=== PATIENT | male | born 1980 | race Caucasian/White ===

== ENCOUNTER 2024-06-11 09:41 | Observation (INO) | payer OTHER ==
[2024-06-11] MEDS ORDERED: ONDANSETRON 4 MG/2 ML VIAL ONE (10:22)
[2024-06-11 10:27] LABS: Absolute Basophils 0.1 K/uL (0-0.5); Absolute Eosinophils 0.1 K/uL (0-0.5); Absolute Lymphocytes (CBC) 1.7 K/uL (0.7-4.9); Absolute Monocytes 0.7 K/uL (0.1-1.3); Absolute Neutrophil 3.2 K/uL (1.8-8.0); Basophils % 1.1 % (0-1.3); Eosinophils % 2.4 % (0-4.4); Hematocrit 43.2 % (39.6-49.0); Hemoglobin 14.7 g/dL (13.6-17.9); Lymphocytes % 29.2 % (15.3-44.8); MCH 31.8 pg (27.0-35.0); MCHC 34.1 g/dL (32.0-36.0); MCV 93.4 fL (80-100); MPV 7.9 fL (7.6-11.3); Monocytes % 12.1 % (3.3-12.3); Neutrophils % 55.2 % (41.7-73.7); Platelets 230 thou/uL (152-406); RBC Red Blood Cell Count 4.63 M/uL (4.33-5.43); Red Cell Distribution Width 13.3 % (12.1-15.2)
[2024-06-11 10:30] LABS: Protime INR 0.98
[2024-06-11] MEDS ORDERED: NITROGLYCERIN 0.4 MG/TAB SL ONE (10:32)
--- NOTE | 2024-06-11 10:36 | RAD REPORT ---
EXAMINATION: ONE VIEW CHEST XR CLINICAL INDICATION: DYSPNEA TECHNIQUE: Frontal chest projection is submitted. Examination is limited by patient positioning and t echnique. COMPARISON: No prior exam. FINDINGS: The lungs are well inflated and clear. The heart is moderately enlarged with multilead pacer/fibrilla tor device. No displaced fractures identified.
[2024-06-11 10:54] LABS: SARS-CoV-2 Antigen CONTROL BLUE LINE VIS/BG OK; SARS-CoV-2 Antigen Rapid Res Negative (Negative)
[2024-06-11 10:55] LABS: ALT/SGPT 77 U/L (16-61); AST/SGOT 55 U/L (15-37); Albumin 3.4 g/dL (3.4-5.0); Albumin/Globulin Ratio 0.8 (1.1-1.8); Alkaline Phosphatase 59 U/L (45-117); BUN Blood Urea Nitrogen 18 mg/dL (7-18); Bicarbonate 22 mEq/L (21-32); Bilirubin Total 0.5 mg/dL (0.2-1.0); Globulin 4.3 g/dL (2.3-3.5); Glomerular Filtration Rate 83 ml/min (=/>90); Glucose Level 126 mg/dL (74-106); Magnesium 2.1 mg/dL (1.6-2.4); NT PRO-BNP 1170 pg/mL (<125); Protein, Total 7.7 g/dL (6.4-8.2); Sodium Level 137 mEq/L (136-145)
[2024-06-11 10:56] LABS: Bilirubin Direct < 0.2 mg/dL (0-0.2); Bilirubin Indirect, Calculated 0.3 mg/dL (0.2-0.8)
[2024-06-11 10:59] LABS: Troponin High Sensitivity 123.7 pg/mL (<58.9)
[2024-06-11] MEDS ORDERED: ASPIRIN EC 325 MG TABLET PO ONE (11:04)
--- NOTE | 2024-06-11 11:16 | ER ---
Nurse's Notes [facility] Name: Delbert Andrade Age: 43 yrs Sex: Male : 1980 Arrival Date: 06/11/2024 Time: 09:41 Bed 13 Private MD: Diagnosis: NSTEMI, CHF exacerbation, chest pain Presentation: 06/11 09:57 Chief complaint: SOB and cough x 6 days, N/V/D x 2-3 days. Coronavirus screen: Client hb presents with at least one sign or symptom that may indicate coronavirus-19. Provider contacted for isolation considerations. Ebola Screen: No symptoms or risks identified at this time. Initial Sepsis Screen: Does the patient meet any 2 criteria? No. Patient's initial sepsis screen is negative. Does the patient have a suspected source of infection? No. Patient's initial sepsis screen is negative. Risk Assessment: Do you want to hurt yourself or someone else? Patient reports no desire to harm self or others. Onset of symptoms was June 05, 2024. 09:57 Method Of Arrival: Ambulatory 09:57 Acuity: JANY 2 hb Triage Assessment: 12:39 General: Appears uncomfortable, Behavior is anxious. Respiratory: Onset: The ko1 symptoms/episode began/occurred at an unknown time. the patient has moderate shortness of breath. Respiratory: Reports shortness of breath at rest on exertion cough that is non-productive. Historical: - Allergies: 09:59 No Known Allergies; hb - Home Meds: 09:59 Digoxin Oral [Active]; Entresto oral [Active]; gabapentin oral [Active]; Magnesium hb Oxide Oral [Active]; unknown HTN med [Active]; - PMHx: 09:59 CHF; Atrial fibrillation; WI; HTN; hb - PSHx: 09:59 Pelvis; pacemaker/defib; Colostomy; Colostomy Reversal; hb - Immunization history:: Adult Immunizations up to date. - Infectious Disease History:: Denies. - Social history:: Smoking status: Patient reports the use of cigarette tobacco products, smokes one-half pack cigarettes per day. Screenin:31 [facility] ED Fall Risk Assessment (Adult) History of falling in the last 3 months, ko1 including since admission No falls in past 3 months (0 pts) Confusion or Disorientation No (0 pts) Intoxicated or Sedated No (0 pts) Impaired Gait No (0 pts) Mobility Assist Device Used No (0 pt) Altered Elimination No (0 pt) Score/Fall Risk Level 0 - 2 = Low Risk Oriented to surroundings, Maintained a safe environment, Educated pt \T\ family on fall prevention, incl call for assistance when getting out of bed, Assessed \T\ reinforced patient's understanding of fall precautions, Hourly rounding (assess needs \T\ fall precautionary measures) done. Abuse screen: Denies threats or abuse. Denies injuries from another. Nutritional screening: No deficits noted. Tuberculosis screening: No symptoms or risk factors identified. Assessment: 10:34 General: Appears uncomfortable, Behavior is cooperative, appropriate for age, anxious. ko1 Pain: Denies pain. Neuro: No deficits noted. Cardiovascular: Rhythm is Respiratory: Airway is patent Respiratory effort is even, unlabored, Breath sounds are diminished bilaterally. Respiratory: Reports shortness of breath at rest on exertion cough that is non-productive. GI: No deficits noted. : No deficits noted. EENT: No deficits noted. Derm: No deficits noted. Musculoskeletal: No deficits noted. Vital Signs: 09:57 BP 174 / 126; Pulse 51; Resp 24; Temp 98.3(O); Pulse Ox 98% on R/A; Weight 113.4 kg; hb Height 6 ft. 0 in. ; Pain 5/10; 10:31 BP 164 / 118; Pulse 54; Resp 24; Pulse Ox 97% on R/A; ko1 10:46 BP 155 / 109; Pulse 56; Resp 15; Pulse Ox 99% ; ko1 10:55 BP 151 / 103; Pulse 52; Resp 15; Pulse Ox 97% on R/A; ko1 11:11 BP 130 / 96; Pulse 50; Resp 17; Pulse Ox 95% on R/A; ko1 12:27 BP 154 / 108; Pulse 93; Resp 16; Pulse Ox 95% on R/A; ko1 09:57 Body Mass Index 33.91 (113.40 kg, 182.88 cm) hb 09:57 Pain Scale: Adult hb ED Course: 09:44 Patient arrived in ED. ra3 09:45 Reynold Krishnamurthy MD is Attending Physician. sp3 09:52 Lalitha Landry RN is Primary Nurse. ko1 09:59 Triage completed. hb 10:02 Arm band placed on. hb 10:20 Basic Metabolic Panel Sent. ko1 10:20 CBC with Diff Sent. ko1 10:20 LFT's Sent. ko1 10:20 Magnesium Sent. ko1 10:20 NT PRO-BNP Sent. ko1 10:20 PT-INR Sent. ko1 10:20 Troponin HS Sent. ko1 10:21 Digoxin Sent. ko1 10:30 Flu Sent. ko1 10:30 SARS RAPID Sent. ko1 10:31 XRAY Chest (1 view) In Process Unspecified. EDMS 10:31 Patient has correct armband on for positive identification. Bed in low position. Call ko1 light in reach. Side rails up X 1. Provided Education on: labs, meds. Client placed on continuous cardiac and pulse oximetry monitoring. NIBP monitoring applied. residential care facility manager on. Door closed. Noise minimized. Lights dimmed. Pillow given. 10:31 Initial lab(s) drawn, by me, sent to lab. EKG done, by ED staff, reviewed by Reynold Krishnamurthy MD COVID swab sent to lab. Flu and/or RSV swab sent to lab. Inserted saline lock: 20 gauge in right antecubital area, using aseptic technique. Blood collected. Flushed with 10 mL NS. 11:32 Be Catherine MD is Hospitalizing Provider. sp3 12:37 No provider procedures requiring assistance completed. Patient admitted, IV remains in ko1 place. Administered Medications: 10:31 Drug: Ondansetron IVP 4 mg IVP once; over 2 minutes Route: IVP; Site: right antecubital;ko1 10:46 Follow up: Response: No adverse reaction ko1 10:38 Drug: Nitroglycerin Sublingual 0.4 mg Sublingual once; every five minute if needed x3 ko1 Route: Sublingual; 10:45 Drug: Nitroglycerin Sublingual 0.4 mg Sublingual once; every five minute if needed x3 ko1 Route: Sublingual; 10:55 Drug: Nitroglycerin Sublingual 0.4 mg Sublingual once; every five minute if needed x3 ko1 Route: Sublingual; 10:59 Follow up: Response: No adverse reaction ko1 11:07 Drug: Aspirin PO 325 mg PO once Route: PO; ko1 11:58 Follow up: Response: No adverse reaction ko1 Medication: 10:31 VIS not applicable for this client. ko1 Outcome: 11:16 ER care complete, transfer ordered by . sp3 11:32 Decision to Hospitalize by Provider. sp3 12:37 Condition: stable ko1 12:37 Instructed on the need for admit, 12:40 Admitted to ER Hold. Please see [facility] for further documentation. ko1 14:40 Admitted to Tele accompanied by tech, via wheelchair, with chart, ko1 14:53 Patient left the ED. ko1 Signatures: Dispatcher [employer] EDMS Radha Tomas, RN RN Reynold Krishnamurthy MD MD sp3 Lalitha Landry RN RN ko1 Monique Varela ra3 Corrections: (The following items were deleted from the chart) 12:28 12:27 BP 156 / 121; Pulse 93bpm; Resp 16bpm; Pulse Ox 95% RA; ko1 ko1
--- NOTE | 2024-06-11 11:16 | EDPHYS ---
Physician Documentation [facility] Name: Delbert Andrade Age: 43 yrs Sex: Male : 1980 Arrival Date: 06/11/2024 Time: 09:41 Bed 13 Private MD: ED Physician Reynold Krishnamurthy HPI: 06/11 10:21 This 43 yrs old Male presents to ER via Ambulatory with complaints of Breathing sp3 Difficulty - x4days. 10:21 43-year-old male with a history of CHF, biventricular heart failure, hypertension, sp3 prior OH, prior CVA, previously on heart transplant list, currently on digoxin now presents to the ED with chief complaint shortness of breath and chest pain. Symptoms began on for the last 2 to 3 days and he feels like he has volume overload. He has been taking his medications without change. His PCP and cardiology care team is within the [facility] system with his PCP in [place]. He denies fever, known sick contacts, abdominal pain, back pain, syncope, near syncope, rash, bleeding, or any other signs or symptoms on ROS at this time.. Historical: - Allergies: 09:59 No Known Allergies; hb - Home Meds: 09:59 Digoxin Oral [Active]; Entresto oral [Active]; gabapentin oral [Active]; Magnesium hb Oxide Oral [Active]; unknown HTN med [Active]; - PMHx: 09:59 CHF; Atrial fibrillation; [place]; HTN; hb - PSHx: 09:59 Pelvis; pacemaker/defib; Colostomy; Colostomy Reversal; hb - Immunization history:: Adult Immunizations up to date. - Infectious Disease History:: Denies. - Social history:: Smoking status: Patient reports the use of cigarette tobacco products, smokes one-half pack cigarettes per day. ROS: 10:22 Constitutional: Negative for fever, chills, and weight loss, Eyes: Negative for injury, sp3 pain, redness, and discharge, ENT: Negative for injury, pain, and discharge, Neck: Negative for injury, pain, and swelling, Abdomen/GI: Negative for abdominal pain, nausea, vomiting, diarrhea, and constipation, Back: Negative for injury and pain, MS/Extremity: Negative for injury and deformity, Skin: Negative for injury, rash, and discoloration, Neuro: Negative for headache, weakness, numbness, tingling, and seizure, Psych: Negative for depression, anxiety, suicide ideation, homicidal ideation, and hallucinations, Allergy/Immunology: Negative for hives, rash, and allergies, Endocrine: Negative for neck swelling, polydipsia, polyuria, polyphagia, and marked weight changes, Hematologic/Lymphatic: Negative for swollen nodes, abnormal bleeding, and unusual bruising, 10:22 All other systems are negative, Exam: 10:22 Constitutional: This is a well developed, well nourished patient who is awake, alert, sp3 and in no acute distress. Head/Face: Normocephalic, atraumatic. Eyes: Pupils equal round and reactive to light, extra-ocular motions intact. Lids and lashes normal. Conjunctiva and sclera are non-icteric and not injected. Cornea within normal limits. Periorbital areas with no swelling, redness, or edema. Neck: Trachea midline, no thyromegaly or masses palpated, and no cervical lymphadenopathy. Supple, full range of motion without nuchal rigidity, or vertebral point tenderness. No Meningismus. Chest/axilla: Normal chest wall appearance and motion. Nontender with no deformity. No lesions are appreciated. Cardiovascular: Regular rate and rhythm with a normal S1 and S2. No gallops, murmurs, or rubs. Normal PMI, no JVD. No pulse deficits. Abdomen/GI: Soft, non-tender, with normal bowel sounds. No distension or tympany. No guarding or rebound. No evidence of tenderness throughout. Back: No spinal tenderness. No costovertebral tenderness. Full range of motion. Skin: Warm, dry with normal turgor. Normal color with no rashes, no lesions, and no evidence of cellulitis. MS/ Extremity: Pulses equal, no cyanosis. Neurovascular intact. Full, normal range of motion. Neuro: Awake and alert, GCS 15, oriented to person, place, time, and situation. Cranial nerves II-XII grossly intact. Motor strength 5/5 in all extremities. Sensory grossly intact. Cerebellar exam normal. Normal gait. Psych: Awake, alert, with orientation to person, place and time. Behavior, mood, and affect are within normal limits. 10:22 Respiratory: Tachypneic with mild Rales noted bilaterally. Blood pressure 174/126., 10:27 ECG was reviewed by the Attending Physician. EKG demonstrates atrial paced rhythm at 98 sp3 bpm with adequate ventricular capture Vital Signs: 09:57 BP 174 / 126; Pulse 51; Resp 24; Temp 98.3(O); Pulse Ox 98% on R/A; Weight 113.4 kg; hb Height 6 ft. 0 in. ; Pain 5/10; 10:31 BP 164 / 118; Pulse 54; Resp 24; Pulse Ox 97% on R/A; ko1 10:46 BP 155 / 109; Pulse 56; Resp 15; Pulse Ox 99% ; ko1 10:55 BP 151 / 103; Pulse 52; Resp 15; Pulse Ox 97% on R/A; ko1 11:11 BP 130 / 96; Pulse 50; Resp 17; Pulse Ox 95% on R/A; ko1 12:27 BP 154 / 108; Pulse 93; Resp 16; Pulse Ox 95% on R/A; ko1 09:57 Body Mass Index 33.91 (113.40 kg, 182.88 cm) hb 09:57 Pain Scale: Adult hb MDM: 09:45 Medical Screening Exam initiated sp3 10:23 Data reviewed: vital signs, nurses notes, lab test result(s), EKG, radiologic studies. sp3 ED course: 43-year-old male with shortness of breath and chest pain. Differential diagnosis includes CHF exacerbation, OH, acute coronary syndrome, musculoskeletal pain, GI pathology, among others. I am not highly suspicious of sepsis or shock. Workup will include EKG, chest x-ray, labs, digoxin level, viral swabs, among others. Disposition probable admission and diagnosis of probable volume overload/CHF exacerbation. Will start with nitroglycerin sublingual and await labs with subsequent Lasix as needed.. 11:13 ED course: Given patient's complex cardiac history including transplant list status and sp3 biventricular failure, patient will need cardio ICU and will be transferred to [facility]. Diagnosis of NSTEMI and CHF have been made.. 11:29 ED course: [facility] at capacity therefore we will keep patient here. I have spoken to our 3 cardiology team who will see him.. 06/11 09:45 Order name: Basic Metabolic Panel; Complete Time: 11:03 sp3 06/11 09:45 Order name: CBC with Diff; Complete Time: 10:52 sp3 06/11 09:45 Order name: LFT's; Complete Time: 11:03 sp3 06/11 09:45 Order name: Magnesium; Complete Time: 11:03 sp3 06/11 09:45 Order name: NT PRO-BNP; Complete Time: 11:03 sp3 06/11 09:45 Order name: PT-INR; Complete Time: 10:52 sp3 06/11 09:45 Order name: Troponin HS; Complete Time: 11:03 sp3 06/11 10:01 Order name: SARS RAPID; Complete Time: 10:58 sp3 06/11 10:01 Order name: Flu; Complete Time: 10:58 sp3 06/11 10:19 Order name: Digoxin; Complete Time: 11:13 sp3 06/11 12:27 Order name: Urinalysis w/ reflexes EDMS 06/11 12:27 Order name: Basic Metabolic Panel EDMS 06/11 12:27 Order name: Basic Metabolic Panel EDMS 06/11 12:27 Order name: CBC with Automated Diff EDMS 06/11 12:27 Order name: CBC with Automated Diff EDMS 06/11 12:27 Order name: Magnesium EDMS 06/11 12:27 Order name: Magnesium EDMS 06/11 12:27 Order name: Phosphorus EDMS 06/11 12:27 Order name: Phosphorus EDMS 06/11 12:27 Order name: Troponin High Sensitivity EDMS 06/11 12:27 Order name: Troponin High Sensitivity EDMS 06/11 12:27 Order name: Troponin High Sensitivity EDMS 06/11 09:45 Order name: XRAY Chest (1 view); Complete Time: 10:52 sp3 06/11 12:27 Order name: Echo with Doppler EDMS 06/11 09:45 Order name: Cardiac monitoring; Complete Time: 09:56 sp3 06/11 09:45 Order name: EKG - Nurse/Tech; Complete Time: 10:20 sp3 06/11 09:45 Order name: IV Saline Lock; Complete Time: 10:20 sp3 06/11 09:45 Order name: Labs collected and sent; Complete Time: 10:20 sp3 06/11 09:45 Order name: O2 Per Protocol; Complete Time: 09:56 sp3 06/11 09:45 Order name: O2 Sat Monitoring; Complete Time: 09:55 sp3 Administered Medications: 10:31 Drug: Ondansetron IVP 4 mg IVP once; over 2 minutes Route: IVP; Site: right antecubital;ko1 10:46 Follow up: Response: No adverse reaction ko1 10:38 Drug: Nitroglycerin Sublingual 0.4 mg Sublingual once; every five minute if needed x3 ko1 Route: Sublingual; 10:45 Drug: Nitroglycerin Sublingual 0.4 mg Sublingual once; every five minute if needed x3 ko1 Route: Sublingual; 10:55 Drug: Nitroglycerin Sublingual 0.4 mg Sublingual once; every five minute if needed x3 ko1 Route: Sublingual; 10:59 Follow up: Response: No adverse reaction ko1 11:07 Drug: Aspirin PO 325 mg PO once Route: PO; ko1 11:58 Follow up: Response: No adverse reaction ko1 Disposition: 11:30 Critical Care:. sp3 Disposition Summary: 06/11/24 11:32 Hospitalization Ordered Notes: Hospitalization Status: Inpatient Admission sp3 Provider: Be Catherine sp3 Condition: Stable(06/11/24 11:32) sp3 Problem: an acute exacerbation(06/11/24 11:32) sp3 Symptoms: have worsened(06/11/24 11:32) sp3 Bed/Room Type: Standard sp3 Location: Telemetry/MedSurg (Inpatient)(06/11/24 13:50) Room Assignment: 219(06/11/24 13:50) Diagnosis - NSTEMI, CHF exacerbation, chest pain sp3 Forms: - Medication Reconciliation Form sp3 - SBAR form sp3 - Leadership Thank You Letter sp3 Critical care time excluding procedures: 11:30 Critical care time: Bedside Care: 20 minutes, Consultation: 10 minutes. Total time: 30 sp3 minutes Signatures: Dispatcher [employer] EDMS Radha Tomas RN RN Reynold Krishnamurthy MD MD sp3 Lalitha Landry RN RN ko1 Corrections: (The following items were deleted from the chart) 09:46 09:46 BASIC METABOLIC PANEL+C.LAB.BRZ ordered. EDMS EDMS 09:46 09:46 CBC+H.LAB.BRZ ordered. EDMS EDMS 09:46 09:46 HEPATIC FUNCTION+C.LAB.BRZ ordered. EDMS EDMS 09:46 09:46 MAGNESIUM+C.LAB.BRZ ordered. EDMS EDMS 09:46 09:46 PROBNP+C.LAB.BRZ ordered. EDMS EDMS 09:46 09:46 PROTIME (+INR)+COAG.LAB.BRZ ordered. EDMS EDMS 09:46 09:46 Troponin High Sensitivity+C.LAB.BRZ ordered. EDMS EDMS 09:46 09:46 Chest Single View+RAD.RAD.BRZ ordered. EDMS EDMS 11: 11:16 [facility] sp3 sp3 11: 11:16 [facility] sp3 sp3 11: 11:16 Higher level of care sp3 sp3 11: 11:16 Stable sp3 sp3 11:31 11:16 an acute exacerbation sp3 sp3 11: 11:16 have worsened sp3 sp3 11:31 11:16 CHF exacerbation, NSTEMI, chest pain, dyspnea sp3 sp3 13:50 11:32 Intensive Care Unit sp3 hb 13:50 11:32 sp3 hb
[2024-06-11] MEDS ORDERED: ACETAMINOPHEN 325 MG TABLET PO PRN (12:19)
--- NOTE | 2024-06-11 12:33 | P.HP ---
Certification for Inpatient Patient admitted to: Observation With expected LOS: <2 Midnights Patient will require the following post-hospital care: None Practitioner: I am a practitioner with admitting privileges, knowledge of patient current condition, hospital course, and medical plan of care. Services: Services provided to patient in accordance with Admission requirements found in Title 42 Section 412.3 of the Code of Federal Regulations Patient History Date of Service: 06/11/24 Reason for admission: CHF exacerbation, NSTEMI, chest pain History of Present Illness: Delbert Andrade is a 43 year old male with PMHX CHF, Afib, HTN, [place], and CVA who presented with chest pain, SOB, nausea, vomitting, fatique, and diarrhea for 4 days. He reports not being able to sleep for 4 days with his coughing. Flu/COVID negative. On evaluation, lung sounds are clear with dry cough, in no acute distress. Laboratory evaluation significant for Trop 123, BNP 1170. Chest xray reports "The lungs are well inflated and clear. The heart is moderately enlarged with multilead pacer/fibrillator device. No displaced fractures identified." He reports being on the heart transplant list but has since been taken off and was feeling better. He stated he has been compliant with medications and Doctor follow ups for 5-6 years. Delbert will be admitted to hopitalist service for further evaluation and treatment for NSTEMI, CHF exacerbation, Dr. Campos consulted. Allergies No Known Allergies Allergy (Unverified 06/11/24 12:37) Home Medications: Atorvastatin Calcium 40 mg PO BEDTIME 06/11/24 Digoxin [Lanoxin*] 1 tab PO DAILY 06/11/24 Empagliflozin [Jardiance] 10 mg PO DAILY 06/11/24 Escitalopram Oxalate [Lexapro] 10 mg PO DAILY 06/11/24 Furosemide [Lasix*] 40 mg PO BID 06/11/24 Gabapentin [Neurontin*] 100 mg PO TID 06/11/24 Magnesium Oxide [Mag 0X*] 400 mg PO DAILY 06/11/24 Sacubitril/Valsartan [Entresto 49 mg-51 mg Tablet] 1 tab PO BID 06/11/24 Trazodone [Desyrel*] 200 mg PO BEDTIME 06/11/24 Vortioxetine Hydrobromide [Trintellix] 1 tab PO DAILY 06/11/24 buPROPion HCL [Wellbutrin*] 300 mg PO DAILY 06/11/24 - Past Medical/Surgical History -: CHF -: PNA -: HTN -: Afib -: CVA -: [place] -: pacer maker/defibrillator -: skin grafts -: abdominal procedure - Social History Smoking Status: Current every day smoker (one pack per week) Alcohol use: Yes CD- Drugs: No Review of Systems Respiratory: Cough, Shortness of Breath Cardiovascular: Chest Pain Gastrointestinal: Nausea, Vomiting, Diarrhea Physical Examination - Physical Exam General: Alert, In no apparent distress, Oriented x3 HEENT: Atraumatic, Normocephalic, PERRLA Neck: Supple, 2+ carotid pulse no bruit, JVD not distended Respiratory: Clear to auscultation bilaterally, Normal air movement Cardiovascular: No edema, Normal pulses, Regular rate/rhythm Capillary refill: <2 Seconds Gastrointestinal: Normal bowel sounds, Soft and benign, No tenderness Musculoskeletal: No clubbing Integumentary: No rashes Neurological: Normal speech, Normal tone - Studies Laboratory Data (last 24 hrs) 06/11/24 06/11/24 06/11/24 10:10 10:10 10:10 WBC 5.90 Hgb 14.7 Hct 43.2 Plt Count 230 PT 11.0 INR 0.98 Sodium 137 Potassium 4.0 BUN 18 Creatinine 1.12 Glucose 126 H Magnesium 2.1 Total Bilirubin 0.5 AST 55 H ALT 77 H Alkaline Phosphatase 59 Microbiology Data (last 24 hrs): 06/11/24 10:25 Nasopharnyx Influenza Type A Antigen Screen - Final 06/11/24 10:25 Nasopharnyx Influenza Type B Antigen Screen - Final Assessment and Plan - Plan Assessment and Plan Chest pain r/o NSTEMI congestive heart failure with exacerbation History of Atrial fibrillation - Consult Cardiology - recommendations appreciated - Ordered transthoracic echocardiogram - Troponin 123, serial pending -COVID and FLu negative -Chest xray reports "The lungs are well inflated and clear. The heart is moderately enlarged with multilead pacer/fibrillator device. No displaced fractures identified." - Diuresis with lasix BID - Hold home Furosemide/Torsemide/Bumetanide - Continue home heart failure medications - Daily weights - Strict I/O - Cardiac diet, 2 L fluid restriction, 2 g Na restriction Transaminitis -AST/ALT 55/77 -will monitor in AM labs HTN IN CVA -continue home medications when appropriate -Supportive care DVT ppx heparin Full code LOS 24 hour OBS Discharge Plan: Home Plan to discharge in: 24 Hours - Advance Directives Does patient have a Living Will: No Does patient have a Durable POA for Healthcare: No
[2024-06-11 15:05] VITALS: O2SAT 95
[2024-06-11 15:36] VITALS: BMI 34.9
[2024-06-11 16:35] LABS: Specific Gravity 1.023 (1.005-1.030); Sqamous Epithelial <5 /HPF (None Seen); Urine Bacteria <20 /HPF (<20); Urine Bilirubin NEGATIVE (Negative); Urine Blood Negative (Negative); Urine Clarity Clear (Clear); Urine Color Light-Yellow (Yellow); Urine Culture Reflex Order NOT NEEDED; Urine Glucose NEGATIVE (Negative); Urine Ketones NEGATIVE (Negative); Urine Microscopic Reflex YN ORDER UMIC; Urine Nitrite NEGATIVE (Negative); Urine Protein 1+ (Negative); Urine RBC <5 /HPF (None Seen); Urine Urobilinogen Normal (Normal); Urine WBC <5 /HPF (<5)
[2024-06-11] MEDS: HEPARIN 5000 UNIT/ML 1 ML VIAL SQ SCH (16:47)
[2024-06-11] MEDS ORDERED: BENZONATATE 100 MG CAP PO PRN (20:06)
[2024-06-11] MEDS: SACUBITRIL/VALSARTAN 49/51 MG TAB PO SCH (21:07)
[2024-06-11] MEDS: FUROSEMIDE 40 MG/4 ML VIAL IV SCH (21:07)
[2024-06-11] MEDS: METOPROLOL TAR 25 MG TAB PO SCH (21:08)
[2024-06-11] MEDS: ATORVASTATIN 40 MG TAB PO SCH (21:08)
[2024-06-11] MEDS: GABAPENTIN 100 MG CAP PO SCH (21:08)
[2024-06-11] MEDS: TRAZODONE 50 MG TABLET PO SCH (21:09)
[2024-06-11] MEDS: HYDRALAZINE HCL 20 MG/ML VIAL IV PRN (21:36)
[2024-06-12 04:47] LABS: Absolute Basophils 0.1 K/uL (0-0.5); Absolute Eosinophils 0.2 K/uL (0-0.5); Absolute Lymphocytes (CBC) 2.4 K/uL (0.7-4.9); Absolute Neutrophil 4.6 K/uL (1.8-8.0); Basophils % 0.8 % (0-1.3); Eosinophils % 2.8 % (0-4.4); Hematocrit 44.1 % (39.6-49.0); Hemoglobin 15.1 g/dL (13.6-17.9); MCHC 34.2 g/dL (32.0-36.0); MCV 93.4 fL (80-100); MPV 8.2 fL (7.6-11.3); Monocytes % 12.5 % (3.3-12.3); Neutrophils % 54.9 % (41.7-73.7); Nucleated Red Blood Cells % 0.2 % (0-0); Platelets 240 thou/uL (152-406); RBC Red Blood Cell Count 4.72 M/uL (4.33-5.43); Red Cell Distribution Width 13.4 % (12.1-15.2)
[2024-06-12 04:56] LABS: Anion Gap 10.1 mEq/L (5.0-15.0); Phosphorus 4.1 mg/dL (2.5-4.9); Potassium 4.1 mEq/L (3.5-5.1)
[2024-06-12] MEDS ORDERED: METOPROLOL TAR 25 MG TAB PO SCH (06:00)
[2024-06-12] MEDS: Jardiance 10 MG Tablet **OWN MED PO SCH (09:00)
[2024-06-12] MEDS: TRINTELLIX 10 MG PO SCH (09:00)
[2024-06-12] MEDS: MAGNESIUM OXIDE 400 MG TAB PO SCH (09:00)
[2024-06-12] MEDS: DIGOXIN 0.25 MG TABLET PO SCH (09:26)
[2024-06-12] MEDS: ASPIRIN EC 81 MG TAB PO SCH (09:27)
[2024-06-12] MEDS: ESCITALOPRAM 20 MG TAB PO SCH (09:27)
[2024-06-12] MEDS: GUAIFENESIN/CODEINE 5ML UCUP PO PRN (09:37)
[2024-06-12 12:20] VITALS: BP 132/74; TEMP 98.4
--- NOTE | 2024-06-12 13:35 | P.CNS ---
Date of Consult: 06/12/24 Chief Complaint: CHF exacerbation, NSTEMI, chest pain History of Present Illness: Patient with PMH of systolic heart failure secondary to substance abuse, presented with cough, worsening SOB and fatigue for last week, denies chest pain, no palpitations, no syncope. Allergies No Known Allergies Allergy (Unverified 06/11/24 12:37) Home medications list reviewed: Yes Home Medications: Atorvastatin Calcium 40 mg PO BEDTIME 06/11/24 Digoxin [Lanoxin*] 1 tab PO DAILY 06/11/24 Empagliflozin [Jardiance] 10 mg PO DAILY 06/11/24 Escitalopram Oxalate [Lexapro] 10 mg PO DAILY 06/11/24 Furosemide [Lasix*] 40 mg PO BID 06/11/24 Gabapentin [Neurontin*] 100 mg PO TID 06/11/24 Magnesium Oxide [Mag 0X*] 400 mg PO DAILY 06/11/24 Sacubitril/Valsartan [Entresto 49 mg-51 mg Tablet] 1 tab PO BID 06/11/24 Trazodone [Desyrel*] 200 mg PO BEDTIME 06/11/24 Vortioxetine Hydrobromide [Trintellix] 1 tab PO DAILY 06/11/24 Bupropion *Xl* [Wellbutrin XL] 300 mg PO DAILY 06/12/24 - Past Medical/Surgical History -: CHF -: PNA -: HTN -: Afib -: CVA -: [place] -: pacer maker/defibrillator -: skin grafts -: abdominal procedure - Social History Smoking Status: Current every day smoker Alcohol use: Yes CD- Drugs: No Caffeine use: Yes Place of Residence: Home Review of Systems 10-point ROS is otherwise unremarkable Physical Examination Temp Pulse Resp BP Pulse Ox 98.4 F 72 16 132/74 98 06/12/24 12:00 06/12/24 12:00 06/12/24 12:00 06/12/24 12:00 06/12/24 12:00 General: Alert, In no apparent distress HEENT: Atraumatic, PERRLA, Mucous membr. moist/pink, EOMI, Sclerae nonicteric Neck: Supple, 2+ carotid pulse no bruit, No LAD, Without JVD or thyroid abnormality Respiratory: Clear to auscultation bilaterally, Normal air movement Cardiovascular: Regular rate/rhythm, Normal S1 S2 Gastrointestinal: Normal bowel sounds, No tenderness Musculoskeletal: No tenderness Integumentary: No rashes Neurological: Normal gait, Normal speech, Normal tone, Normal affect Lymphatics: No axilla or inguinal lymphadenopathy - Problems (1) Chronic combined systolic and diastolic heart failure Current Visit: Yes Status: Acute Plan: Patient looks euvolemic on exam, patient used to follow up with [facility] Heart failure team and was at [facility] at one point so his HF is for sure non ischemic in nature, he has been complaint with medications. resume his home heart failure medications outpatient follow up with cardiology. (2) Elevated troponin Current Visit: Yes Status: Acute Plan: type 2 NC from atypical PNA, no need for further cardiac work up. outpatient follow up with cardiology.
[2024-06-12] MEDS: BUPROPION HCL XL 150 MG TAB PO SCH (14:04)
--- NOTE | 2024-06-12 14:50 | P.DS ---
Admission Date: 06/11/24 Discharge Date: 06/18/24 Disposition: ROUTINE DISCHARGE Discharge Condition: GOOD Reason for Admission: CHF exacerbation, NSTEMI, chest pain Brief History of Present Illness: Diagnosis Chest pain r/o NSTEMI Viral PNA congestive heart failure with exacerbation History of Atrial fibrillation Transaminitis HTN OR CVA HPI 06/11/24 Delbert Andrade is a 43 year old male with PMHX CHF, Afib, HTN, OR, and CVA who presented with chest pain, SOB, nausea, vomitting, fatique, and diarrhea for 4 days. He reports not being able to sleep for 4 days with his coughing. Flu/COVID negative. On evaluation, lung sounds are clear with dry cough, in no acute distress. Laboratory evaluation significant for Trop 123, BNP 1170. Chest xray reports "The lungs are well inflated and clear. The heart is moderately enlarged with multilead pacer/fibrillator device. No displaced fractures identified." He reports being on the heart transplant list but has since been taken off and was feeling better. He stated he has been compliant with medications and Doctor follow ups for 5-6 years. Delbert will be admitted to hopitalist service for further evaluation and treatment for NSTEMI, CHF exacerbation, Dr. Campos consulted. Hospital Course: Delbert presented to the ED with NSTEMI and CHF. Troponin trended down, Dr. Campos consulted recommending continuing heart failure medications and follow up outpatient. He tolerated lasix and reports feeling better in the AM. He remianed on RA and ambulated independently. On 06/12/24, Delbert was seen on morning rounds and deemed medically stable for discharge. Daivd was discharged with instructions to schedule follow-up appointments with Cardiology and PCP. Delbert was provided prescriptions for Robitussin, tessalon Perle, and aspirin. Physical Exam General: Alert and Oriented x3, NAD HEENT: Atraumatic, Normocephalic, PERRLA Neck: Supple, 2+ carotid pulse no bruit, JVD not distended Respiratory: Clear to auscultation bilaterally, Normal air movement, on RA Cardiovascular: No edema, Normal pulses, RRR, S1 S2 present Capillary refill: <2 Seconds Gastrointestinal: Normal bowel sounds, Soft and benign, No tenderness Musculoskeletal: No clubbing Integumentary: No rashes Neurological: Normal speech, Normal tone Vital Signs/Physical Exam: Temp Pulse Resp BP Pulse Ox 98.4 F 72 16 132/74 98 06/12/24 12:00 06/12/24 12:00 06/12/24 12:00 06/12/24 12:00 06/12/24 12:00 Laboratory Data at Discharge: WBC 8.30 thou/uL (4.3-10.9) 06/12/24 04:02 Hgb 15.1 g/dL (13.6-17.9) 06/12/24 04:02 Hct 44.1 % (39.6-49.0) 06/12/24 04:02 Plt Count 240 thou/uL (152-406) 06/12/24 04:02 PT 11.0 SECONDS (9.4-12.5) 06/11/24 10:10 INR 0.98 06/11/24 10:10 Sodium 136 mEq/L (136-145) 06/12/24 04:02 Potassium 4.1 mEq/L (3.5-5.1) 06/12/24 04:02 BUN 26 mg/dL (7-18) H 06/12/24 04:02 Creatinine 1.52 mg/dL (0.70-1.30) H 06/12/24 04:02 Glucose 115 mg/dL (74-106) H 06/12/24 04:02 Phosphorus 4.1 mg/dL (2.5-4.9) 06/12/24 04:02 Magnesium 2.0 mg/dL (1.6-2.4) 06/12/24 04:02 Total Bilirubin 0.5 mg/dL (0.2-1.0) 06/11/24 10:10 AST 55 U/L (15-37) H 06/11/24 10:10 ALT 77 U/L (16-61) H 06/11/24 10:10 Alkaline Phosphatase 59 U/L (45-117) 06/11/24 10:10 Home Medications: Atorvastatin Calcium 40 mg PO BEDTIME 06/11/24 Digoxin [Lanoxin*] 1 tab PO DAILY 06/11/24 Empagliflozin [Jardiance] 10 mg PO DAILY 06/11/24 Escitalopram Oxalate [Lexapro] 10 mg PO DAILY 06/11/24 Gabapentin [Neurontin*] 100 mg PO TID 06/11/24 Magnesium Oxide [Mag 0X*] 400 mg PO DAILY 06/11/24 Sacubitril/Valsartan [Entresto 49 mg-51 mg Tablet] 1 tab PO BID 06/11/24 Trazodone [Desyrel*] 200 mg PO BEDTIME 06/11/24 Vortioxetine Hydrobromide [Trintellix] 1 tab PO DAILY 06/11/24 Aspirin [Aspirin EC 81 MG] 81 mg PO 30 MIN BEFORE HS 30 Days #30 tab 06/12/24 Benzonatate [Tessalon Perle*] 100 mg PO Q6H PRN 5 Days #15 cap 06/12/24 Bupropion *Xl* [Wellbutrin XL*] 300 mg PO DAILY 06/12/24 Bupropion *Xl* [Wellbutrin XL*] 300 mg PO DAILY tab 06/12/24 Guaifen W/Codeine Syrup [ROBITUSSIN A-C Syrup*] 10 ml PO QID PRN 5 Days #200 ml 06/12/24 New Medications: Aspirin [Aspirin EC 81 MG] 81 mg PO 30 MIN BEFORE HS 30 Days #30 tab Guaifen W/Codeine Syrup [ROBITUSSIN A-C Syrup*] 10 ml PO QID PRN 5 Days #200 ml PRN Reason: COUGH - 2ND LINE Benzonatate [Tessalon Perle*] 100 mg PO Q6H PRN 5 Days #15 cap PRN Reason: COUGH - 1ST LINE Physician Discharge Instructions: 1. Please call and schedule a follow-up appointment with your PCP in 3-5 days - Please follow-up with your PCP for medication refills/adjustments -PCP may wish to start an antibiotic if symptoms worsen 2. Please call and schedule a follow-up appointment with cardiology in one week -Contnue all medications as prescribed 3. Continue heart healty diet 4. no activity restrictions 5. Return to the ED if symptoms worsen New medications Robitussin 10 ml four times daily as needed for cough Tessalon Perle 100 mg three times daily as need for cough Aspirin 81 mg daily Hold lasix until SaturdayJun 14, you were given a high dose of lasix and your kidney levels elevated some. Holding on the lasix for a day will allow that level to normalize. Diet: AHA Activity: Ad vicky Followup: Obi-Tyrese Walker MD [Primary Care Provider] -
--- NOTE | 2024-06-12 15:42 | EKG ---
Test Date: 2024-06-11 Test Time: 10:10:25 Identity Management Consultant: JUSTYN MEASUREMENT RESULTS: Intervals: Rate: 98 [place]: 142 QRSD: 136 QT: 436 QTc: 556 [place]: P: 47 NJ: 142 QRS: -44 T: 92 INTERPRETIVE STATEMENTS: Electronic ventricular pacemaker No previous ECG available for comparison Electronically Signed On 06-12-24 15:40:16 [employer] MANAGER by Francisco Campos
--- NOTE | 2024-06-15 08:36 | ECHO ---
HEIGHT: 6 ft 0 in WEIGHT: 257 lb 8 oz DATE OF STUDY: 06/12/[address]: Lin Foote NP 2-DIMENSIONAL: YES M.MODE: YES DOPPLER: YES COLOR FLOW: YES TDS: NO PORTABLE: YES DEFINITY: NO BUBBLE STUDY: NO DIAGNOSIS: HEART FAILURE, NSTEMI CARDIAC HISTORY: CATHERIZATION: NO SURGERY: NO PROSTHETIC VALVE: NO PACEMAKER: YES MEASUREMENTS (cm) DIASTOLIC (NORMALS) SYSTOLIC (NORMALS) IVSd 1.2 (0.6-1.2) LA Diam (1.9-4.0) LVEF 30-35% LVIDd 5.5 (3.5-5.7) LVIDs 4.7 (2.0-3.5) %FS 16% LVPWd 1.3 (0.6-1.2) Ao Diam 2.4 (2.0-3.7) 2 DIMENSIONAL ASSESSMENT: RIGHT ATRIUM: NORMAL LEFT ATRIUM: NORMAL RIGHT VENTRICLE: NORMAL LEFT VENTRICLE: SEVERELY DILATED TRICUSPID VALVE: INSUFFICENT TRICUSPID REGURGITATION MITRAL VALVE: MILD MITRAL REGURGITATION PULMONIC VALVE: NORMAL AORTIC VALVE: NORMAL PERICARDIAL EFFUSION: NONE AORTIC ROOT: NORMAL LEFT VENTRICULAR WALL MOTION: SEVERE GLOBAL HYPOKINESIS. DOPPLER/COLOR FLOW: GRADE I DIASTOLIC DYSFUNCTION. COMMENTS: 1. SEVERELY REDUCED LEFT VENTRICULAR SYSTOLIC FUNCTION. LEFT VENTRICULAR EJECTION FRACTION 30-35%. MODERATE TO SEVERE GLOBAL HYPOKINESIS. 2. GRADE I DIASTOLIC DYSFUNCTION. 3. MILD MITRAL REGURGITATION TECHNOLOGIST: RICARDO JIMENEZ
== END 2024-06-12 16:15 | disposition home or self-care (01) ==
LOC: ER 09:41 → ERHOLD 12:19 → 2ND 14:29
PROVIDERS: ADMIT Hospitalist; ATTEND Hospitalist
DX: I21.A1 Myocardial infarction type 2 (principal); I50.43 Acute on chronic combined systolic (congestive) and diastolic (congestive) heart failure; R79.89 Other specified abnormal findings of blood chemistry; R74.01 Elevation of levels of liver transaminase levels; I48.11 Longstanding persistent atrial fibrillation; J12.9 Viral pneumonia, unspecified; Z79.82 Long term (current) use of aspirin; Z86.73 Personal history of transient ischemic attack (TIA), and cerebral infarction without residual deficits; Z11.52 Encounter for screening for COVID-19
CPT/HCPCS: 93005; 93306; 85025 ×2; 81001; 80048 ×2; 36415; 83735 ×2; 84100; 85610; 80162; 80076; 84484 ×3; 83880; 87804 ×2; 71045; 96374; 99285; 87811; J1644 ×2; J0360; J1940; J2405; G0378 ×4